=== PATIENT | male | born 1995 | race Hispanic/Latino ===

== ENCOUNTER 2021-10-15 20:31 | Emergency (ER) | payer SELFPAY | END 2021-10-15 20:58 | disposition left against medical advice (07) | LOC: CSHERS 20:31 | DX: S62.141A Displaced fracture of body of hamate [unciform] bone, right wrist, initial encounter for closed fracture (principal); S62.609A Fracture of unspecified phalanx of unspecified finger, initial encounter for closed fracture; V00.131A Fall from skateboard, initial encounter; Y93.51 Activity, roller skating (inline) and skateboarding | CPT/HCPCS: 99283 ==